=== PATIENT | female | born 1955 | race Caucasian/White ===

== ENCOUNTER 2018-04-25 00:20 | Emergency (ER) | payer SELFPAY ==
[2018-04-25 00:25] VITALS: BP 168/93; PULSE 88; TEMP 98.1; BMI 21.2
[2018-04-25] MEDS ORDERED: LIDOCAINE HCL 1%, 10 MG/ML (20ML VIAL) ONE (00:31)
--- NOTE | 2018-04-25 00:37 | PDOC ---
History of Present Illness - General Chief Complaint: Bite Stated Complaint: "MY DOG BIT ME" Time Seen by Provider: 04/25/18 00:28 History Source: Patient Exam Limitations: No Limitations - History of Present Illness Initial Comments: 04/25/18 01:10 This is a 62-year-old female who comes in complaining of dog bite to her right arm. Patient said that 2 dogs were fighting over a bone in the bed and her arm got in the middle of the fight and they bit her arm. In multiple places the results are otherwise healthy and her immunizations are up-to-date. Allergies: None Past Medical History: none Social history: Lives with family. No smoking. No alcohol. No illicit drugs. Surgical history: None General: No fevers or chills, no weakness, no weight loss HEENT: No change in vision. No sore throat,. No ear pain CardioVascular: no chest discomfort. No shortness of breath Respiratory:No cough, or wheezing. Gastrointestinal: no nausea, vomiting, diarrhea or constipation, No rectal bleeding Genitourinary: No dysuria, hematuria, or frequency Musculoskeletal: No joint or muscle pain or swelling Neurologic: No headache, vertigo, dizziness or loss of consciousness Psychiatric: nor depression Skin: No rashes or easy bruising, dog bite right arm Endocrine: no increased thirst or abnormal weight change Allergic: no skin or latex allergy All other systems reviewed and normal GENERAL: The patient is awake, alert, and fully oriented, in no acute distress. HEAD: Normal with no signs of trauma. EYES: Pupils equal, round and reactive to light, extraocular movements intact, sclera anicteric, conjunctiva clear. EXTREMITIES: There are total of 4 lacerations to the right antecubital fossa area. Laceration #1 approximately 3 cm in length. Laceration #2 approximately 2 cm in length. Laceration #3 approximate 1 cm in length. Laceration #4 approximately a half centimeter NEUROLOGICAL: Normal speech, normal gait. PSYCH: Normal mood, normal affect. SKIN: Warm, Dry, normal turgor, no rashes or lesions noted.. Decision note laceration repairs Laceration anesthetized with 1% lidocaine no epinephrine Lacerations irrigated profusely with approximately a liter total of normal saline using a Zerowet and pressure. Laceration #1 closed with total 6 sutures of interrupted 4-0 Ethilon. Laceration #2 closed with approximately 4 sutures of the same material as #1. Laceration #3 closed with 2 sutures Laceration #1 closed with total 1 suture Estrace and sterile dressing applied patient tolerated well Past History - Past Medical History Allergies/Adverse Reactions: Allergies Allergy/AdvReac Type Severity Reaction Status Date / Time No Known Allergies Allergy Unverified 04/25/18 00:38 Home Medications: Ambulatory Orders Amoxicillin/Potassium Clav [Augmentin 875-125 Tablet] 1 each PO BID #14 tablet 04/25/18 COPD: No - Suicide/Smoking/Psychosocial Hx Smoking History: Unknown if ever smoked Have you smoked in the past 12 months: No Number of Cigarettes Smoked Daily: 0 Information on smoking cessation initiated: No Hx Alcohol Use: No Drug/Substance Use Hx: No *Physical Exam - Vital Signs Last Vital Signs Temp Pulse Resp BP Pulse Ox 98.1 F 88 14 168/93 100 04/25/18 00:23 04/25/18 00:23 04/25/18 00:23 04/25/18 00:23 04/25/18 00:23 Moderate Sedation - Procedure Monitoring Vital Signs: Procedure Monitoring Vital Signs Temperature 98.1 F 04/25/18 00:23 Pulse Rate 88 04/25/18 00:23 Respiratory Rate 14 04/25/18 00:23 Blood Pressure 168/93 04/25/18 00:23 O2 Sat by Pulse Oximetry (%) 100 04/25/18 00:23 *DC/Admit/Observation/Transfer Diagnosis at time of Disposition: Lacerations of multiple sites of right arm Qualifiers: Encounter type: initial encounter Qualified Code(s): S41.111A - Laceration without foreign body of right upper arm, initial encounter - Discharge Dispostion Disposition: HOME Condition at time of disposition: Good Decision to Admit order: No - Referrals - Patient Instructions Printed Discharge Instructions: How to Care for a Domestic Animal Bite Additional Instructions: Keep the lacerations clean and dry do not get it wet for 72 hours. Take Augmentin 1 tablet twice a day for 7 days Take Aleve 2 tablets twice a day or ibuprofen 3 tablets twice a day as needed for pain After that it is okay to get them wet but do not soak them. Clean him twice a day with some peroxide and reapply the bacitracin and keep covered with a clean dressing for the next 72 hours. Return to the emergency department immediately with ANY new, persistent or worsening symptoms. Continue any medications as previously prescribed by your physician. You should follow up with your primary doctor as soon as possible regarding today's emergency department visit. . Please make sure your doctor reviews the results of your emergency evaluation. Thank you for coming to the Emergency Department today for your care. It was a pleasure to see you today. Please note that your evaluation is INCOMPLETE until you follow-up with your doctor. - Post Discharge Activity
[2018-04-25] MEDS ORDERED: PIPERACILLIN/TAZOBACTAM 3.375 GM VIAL IVPB ONE (00:39)
[2018-04-25] MEDS ORDERED: PIPERACILLIN/TAZOB 3.375 GM 3.375 GM in DEXTROSE 5%-WATER - 50 ML IVPB ONE (01:27)
== END 2018-04-25 01:34 | disposition home or self-care (01) ==
LOC: FER 00:20
PROC: 0HQDXZZ Repair Right Lower Arm Skin, External Approach (ICD-10-PCS; principal; 2018-04-25)
PROC: 3E03329 Introduction of Other Anti-infective into Peripheral Vein, Percutaneous Approach (ICD-10-PCS; 2018-04-25)
DX: S51.811A Laceration without foreign body of right forearm, initial encounter (principal); S51.851A Open bite of right forearm, initial encounter; W54.0XXA Bitten by dog, initial encounter; Y93.89 Activity, other specified; Y92.003 Bedroom of unspecified non-institutional (private) residence as the place of occurrence of the external cause
CPT/HCPCS: 99283-25

== ENCOUNTER 2018-05-03 12:24 | Emergency (ER) | payer SELFPAY ==
[2018-05-03 12:40] VITALS: BP 139/80; PULSE 76; TEMP 98.1; BMI 18.8
--- NOTE | 2018-05-03 12:44 | PDOC ---
Attending Attestation - Resident Resident Name: Melvin Davies - ED Attending Attestation I have performed the following: I have examined & evaluated the patient, The case was reviewed & discussed with the resident, I agree w/resident's findings & plan, Exceptions are as noted - HPI HPI: 05/03/18 12:33 Dog bite right arm, sutured 10 days ago. Healing well. Patient denies pain or drainage. - Physicial Exam PE: 05/03/18 12:33 Alert oriented cheerful and cooperative Afebrile, vital signs normal Several wounds of the right upper arm and forearm with sutures in place. The upper arm lacerations are healing well, are flat, without erythema, warmth, or drainage. The forearm laceration is healing well, but there is a 1-2 cm hematoma present. However, there is no tenderness or erythema warmth or drainage. - Medical Decision Making 05/03/18 12:35 Assessment: Despite sutures of the bite wound, the skin appears to be healing well. There is no sign of infection. There is no sign of distal nerve or tendon injuries. Plan: Sutures removed. Continue wound care. Recheck immediately if sign of infection, including bleeding or drainage.
--- NOTE | 2018-05-03 12:45 | PDOC ---
Suture Removal/Wound Check HPI - History of Present Illness Chief Complaint: Suture/Staple Removal(Here) Stated Complaint: WOUND CHECK, SUTURE REMOVAL TO RFA Time Seen by Provider: 05/03/18 12:26 History Source: Yes: Patient Exam Limitations: Yes: No Limitations Treated at: [facility] ED Date of Last ED visit: 04/25/18 (13 sutures placed over 4 lacerations over trhe right arm.) - Previous ED Treatment Type of procedure performed on last visit: Yes: Laceration Repair Tetanus Immunization: Yes: Up to Date Antibiotics Prescribed: Yes (Patient only took half the prescvription, night doses) Past History - Past Medical History Allergies/Adverse Reactions: Allergies Allergy/AdvReac Type Severity Reaction Status Date / Time No Known Allergies Allergy Verified 05/03/18 12:26 Home Medications: Ambulatory Orders Amoxicillin/Potassium Clav [Augmentin 875-125 Tablet] 1 each PO BID #14 tablet 04/25/18 COPD: No - Suicide/Smoking/Psychosocial Hx Smoking History: Never smoked Have you smoked in the past 12 months: No Number of Cigarettes Smoked Daily: 0 Information on smoking cessation initiated: No Hx Alcohol Use: No Drug/Substance Use Hx: No Suture Removal/Wound Check PE - Physical Exam Laceration/Wound Check Symptoms: reports: Redness, Improved. denies: Pain, Fever, Chills, Numbness, Weakness Current Severity Level: None Location of Laceration/Wound: right: Arm (x4) *Review of Systems - Review of Systems Able to Perform ROS?: Yes Constitutional: No: Symptoms Reported HEENTM: No: Symptoms Reported Respiratory: No: Symptoms reported Cardiac (ROS): No: Symptoms Reported ABD/GI: No: Symptoms Reported : No: Symptoms Reported Musculoskeletal: No: Symptoms Reported Integumentary: Yes: Erythema. No: Symptoms Reported Neurological: No: Symptoms reported All Other Systems: Reviewed and Negative *Physical Exam - Vital Signs Last Vital Signs Temp Pulse Resp BP Pulse Ox 98.1 F 76 18 139/80 100 05/03/18 12:24 05/03/18 12:24 05/03/18 12:24 05/03/18 12:24 05/03/18 12:24 - Physical Exam General Appearance: Yes: Nourished, Appropriately Dressed. No: Apparent Distress HEENT: positive: EOMI, SHAKILA, Normal ENT Inspection Respiratory/Chest: positive: Lungs Clear, Normal Breath Sounds. negative: Chest Tender, Respiratory Distress Cardiovascular: positive: Regular Rhythm, Regular Rate, S1, S2 Gastrointestinal/Abdominal: positive: Normal Bowel Sounds. negative: Tender Musculoskeletal: positive: Normal Inspection. negative: CVA Tenderness Extremity: positive: Normal Capillary Refill, Normal Inspection, Normal Range of Motion, Other (Healing scars with some erythema and hematoma. ) Moderate Sedation - Procedure Monitoring Vital Signs: Procedure Monitoring Vital Signs Temperature 98.1 F 05/03/18 12:24 Pulse Rate 76 05/03/18 12:24 Respiratory Rate 18 05/03/18 12:24 Blood Pressure 139/80 05/03/18 12:24 O2 Sat by Pulse Oximetry (%) 100 05/03/18 12:24 Medical Decision Making - Medical Decision Making 05/03/18 12:55 13 sutures removed and bacitracin applied. Patient given Boostrix as she doesn't remember if she is up to date on immunization. (Thought she was last visit). Ok to discharge with return precautions. *DC/Admit/Observation/Transfer Diagnosis at time of Disposition: Visit for suture removal - Discharge Dispostion Disposition: HOME Condition at time of disposition: Stable Decision to Admit order: No - Referrals - Patient Instructions Printed Discharge Instructions: DI for Suture Removal Additional Instructions: Come back to the emergency department for any new, worsening or concerning symptom such as fever, pain/tenderness at the suture sites or loss of function of the arm. Follow up with your primary care provider. - Post Discharge Activity
[2018-05-03] MEDS ORDERED: DIPHTH,PERTUSS(ACELL),TET 0.5 ML DISP.SYRIN IM ONE ×2 (12:51→12:54)
== END 2018-05-03 13:05 | disposition home or self-care (01) ==
LOC: FER 12:24
PROC: 3E0234Z Introduction of Serum, Toxoid and Vaccine into Muscle, Percutaneous Approach (ICD-10-PCS; principal; 2018-05-03)
DX: Z48.02 Encounter for removal of sutures (principal)
CPT/HCPCS: 90715; 99282-25